=== PATIENT | female | born 1965 | race Two or more races ===

== ENCOUNTER 2024-02-17 17:37 | Emergency (ER) | payer OTHER ==
[~2024-02-17] VITALS: Ht 149.9 cm; Wt 72.6 kg
[2024-02-17] MEDS ORDERED: COZAAR25 MG PO (17:40)
[2024-02-17] MEDS ORDERED: HYDRODIURIL12.5 MG PO (17:40)
[2024-02-17] MEDS ORDERED: JARDIANCE25 MG PO (17:41)
[2024-02-17] MEDS ORDERED: ATORVASTATIN CA40 MG PO (17:41)
[2024-02-17] MEDS ORDERED: HORIZANT300 MG PO (17:41)
[2024-02-17] MEDS ORDERED: FAMOTIDINE40 MG PO (17:41)
[2024-02-17] MEDS ORDERED: SYNTHROID125 MCG PO (17:42)
[2024-02-17] MEDS ORDERED: ACTOS30 MG PO (17:42)
[2024-02-17] MEDS ORDERED: ZEGERID 40 MG1 EACH PO (17:42)
[2024-02-17] MEDS ORDERED: GLUMETZA1000 MG PO (17:42)
[2024-02-17] MEDS ORDERED: 0.9 % SODIUM CHLORIDE 1,000 ML IV ONE (18:00)
[2024-02-17 20:02] LABS: HEMATOCRIT 45.6 % (36.0-45.00); HEMOGLOBIN 15.1 g/dL (12.0-15.00); MEAN CELL VOLUME 85.6 fL (80.00-100.00); MEAN CORPUSCULAR HEMOGLOBIN 28.3 pg (27.00-32.0); MEAN CORPUSCULAR HGB CONC 33.1 g/dl (32.0-36.0); PLATELET COUNT 272 K/uL (150-450); RED BLOOD COUNT 5.32 M/uL (4.00-6.00); RED CELL DISTRIBUTION WIDTH 13.4 % (11.5-14.5)
[2024-02-17 20:15] LABS: PH,URINE 5.5 (5.0-8.0); URINE APPEARANCE Clear; URINE BILIRRUBIN Negative (NEGATIVE); URINE BLOOD Negative; URINE COLOR Yellow; URINE LEUKOCYTE Negative; URINE NITRATE Negative; URINE PROTEIN Negative (NEGATIVE); URINE UROBILINOGEN 0.2 E.U./dl
[2024-02-17 20:19] LABS: URINE BACTERIA 47.8 uL (0.0-1933); URINE EPITHELIAL CELLS 9.2 uL (0.0-38.8); URINE WBC 20.8 uL (0.0-23.2)
[2024-02-17 20:21] LABS: URINE CAST 0.15 uL (0.0-1.40); URINE GLUCOSE >=1000 MG/DL (NEGATIVE); URINE KETONE 80 (NEGATIVE)
[2024-02-17 20:23] LABS: PARTIAL THROMBOPLASTIN TIME 24.9 SECONDS (22.0-34.0); PROTHROMBIN TIME 10.9 SECONDS (9.0-11.5)
[2024-02-17 20:30] LABS: ALBUMIN 4.2 gm/dL (3.4-5.0); BILIRUBIN TOTAL 0.52 mg/dL (0.3-1.2); CALCIUM 9.8 mg/dL (8.5-10.1); CREATININE SERUM 0.87 mg/dL (0.55-1.02); GFR 66.41; GLOBULINA 3.9 G/DL (2.4-3.5); POTASSIUM 3.63 mEq/L (3.5-5.1); TOTAL PROTEIN 8.1 gm/dL (6.4-8.2)
[2024-02-17] MEDS ORDERED: OSELTAMIVIR PHO75 MG PO (23:47)
== END 2024-02-18 02:43 | disposition home or self-care (01) ==
LOC: ER 17:39
PROVIDERS: General Practice
DX: R55 Syncope and collapse (principal); I10 Essential (primary) hypertension; Z85.89 Personal history of malignant neoplasm of other organs and systems; Z20.822 Contact with and (suspected) exposure to COVID-19